=== PATIENT | male | born 1970 | race Caucasian/White ===

== ENCOUNTER 2020-03-11 18:54 | Emergency (ER) | payer MEDICARE, OTHER ==
[~2020-03-11] VITALS: Ht 177.8 cm; Wt 99.8 kg
[2020-03-11] MEDS ORDERED: DIATR MEGLU/DIATRIZOATE SODIUM 30 ML BOTTLE (GASTROGRAPHIN) ONE (19:06)
--- NOTE | 2020-03-11 19:07 | NUR ---
G-TUBE PLACED IN BY
--- NOTE | 2020-03-11 19:16 | NUR ---
XRAY AT BEDSIDE.
--- NOTE | 2020-03-11 20:08 | NUR ---
[facility] 0000 hours trip#[id number]
--- NOTE | 2020-03-11 20:37 | NUR ---
CALLED [facility] TRIP#[id number]
--- NOTE | 2020-03-11 20:42 | NUR ---
REPORT GIVEN TO DAVION LAM STAFF [facility]. STAFF IS AWARE OF PATIENT'S TRANSPORT ETA
--- NOTE | 2020-03-11 20:44 | NUR ---
[facility] ETA [id number]
--- NOTE | 2020-03-11 22:14 | NUR ---
PATIENT'S LIPS ARE SWABBED WITH WET SWAB TO KEEP LIPS FROM BEING DRY.
--- NOTE | 2020-03-11 23:23 | NUR ---
PATIENT IS RESTING AND AWAKE IN BED. NOT IN ANY DISTRESS. CONNECTED TO THE MONITOR. BREATHING EVENLY AND UNLABORED ON VENTILATOR AT 98%.
--- NOTE | 2020-03-12 02:06 | NUR ---
PATIENT IS AGITATED AND CONSTANTLY YELLING. NOT REDIRECTABLE. MD IS NOTIFIED.
[2020-03-12] MEDS ORDERED: LORAZEPAM INJ 2 MG/ML VIAL ONE (02:07)
[2020-03-12] MEDS ORDERED: LORAZEPAM INJ 2 MG/ML VIAL IM ONE (02:30)
--- NOTE | 2020-03-12 03:15 | NUR ---
PATIENT IS RESTING. NOT IN ANY DISTRESS. BREATHING EVENLY AND UNLABORED ON VENTILATOR. PATIENT IS CONNECTED TO THE MONITOR. SITTER AT BEDSIDE. SIDE RAILS ARE UP FOR SAFETY. CALL LIGHTS ARE SAFELY WITHIN REACH.
--- NOTE | 2020-03-12 07:20 | NUR ---
PER WIRE CHARGER, AMBULANCE WILL BE HERE AT 0900.
--- NOTE | 2020-03-12 07:32 | NUR ---
PATIENT IN BED AWAKE, HOOKED TO MONITOR, VSS. VENT SETTINGS CURRENTLY AT BRATE: 10, VT: 500, O2: 30%, PEEP: 0. WILL CONTINUE TO MONITOR ACCORDINGLY. KEPT WARM, SAFE AND COMFORTABLE.
--- NOTE | 2020-03-12 08:17 | NUR ---
CHANGED G-TUBE SITE DRESSING.
--- NOTE | 2020-03-12 09:26 | NUR ---
CALLED TRANSPORT [facility] ETA [id number]
--- NOTE | 2020-03-12 10:34 | NUR ---
PATIENT PICKED UP BY [facility] [address] IN STABLE CONDITION, REPORT GIVEN TO LISA LAGUNAS RN FOR VENTILATOR ASSISTANCE. CLINICALS GIVEN TO EMS TO BE GIVEN TO THE FACILITY. VITAL SIGNS TAKEN AND RECORDED BEFORE DEPARTURE FROM ED.
[2020-03-12 10:38] VITALS: BP 133/72
== END 2020-03-12 10:51 ==
LOC: ER 19:03
DX: K94.23 Gastrostomy malfunction (principal); Z86.73 Personal history of transient ischemic attack (TIA), and cerebral infarction without residual deficits; Z99.11 Dependence on respirator [ventilator] status; Z91.018 Allergy to other foods
CPT/HCPCS: 43762; 74018; 96372; 99284; J2060; Q9963